=== PATIENT | female | born 1925 | race Native Hawaiian/Other Pacific Islander ===

== ENCOUNTER → 2016-10-24 | Outpatient (CLI) | payer MEDICARE, OTHER ==
[~2016-10-24] MED LIST: AMLO5TAB66 PO; ISOS10TA2 PO; OLME40 PO
== END | disposition home or self-care (01) ==
LOC: RADPV 10:24
PROVIDERS: ATTEND Internal Medicine
DX: I70.0 Atherosclerosis of aorta (principal); R91.8 Other nonspecific abnormal finding of lung field; M41.84 Other forms of scoliosis, thoracic region
CPT/HCPCS: 71020